=== PATIENT | male | born 1935 | race Hispanic/Latino ===

== ENCOUNTER 2017-08-09 13:49 | Outpatient (CLI) | payer MEDICARE, OTHER ==
--- NOTE | 2017-08-09 14:49 | XRay Report ---
Bilateral standing hips: Hip pain bilaterally. AP and lateral views of the hips are obtained. The articular margins are smooth and the joint spaces are preserved bilaterally. Both hips are in normal alignment. Demineralization is difficult to assess and may be slightly decreased. The lower lumbar bodies appear tilted to the left possibly from scoliosis and there is strong suggestion of rather significant degenerative L5-S1 changes. The SI joints appear intact. Impressions: 1. Unremarkable hips. 2. 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
== END 2017-08-09 13:50 | disposition home or self-care (01) ==
LOC: SPVIMAG 13:49
PROVIDERS: ATTEND Internal Medicine
DX: M25.552 Pain in left hip (principal); M25.551 Pain in right hip
CPT/HCPCS: 73521

== ENCOUNTER 2017-12-29 14:21 | Outpatient (CLI) | payer MEDICARE, OTHER ==
--- NOTE | 2017-12-30 00:02 | XRay Report ---
FINAL REPORT PROCEDURE: XR RIBS UNILAT 2V LT TECHNIQUE: Chest radiograph anteroposterior view. CPT 98587 HISTORY: LEFT RIB PAIN COMPARISON: No prior studies are available for comparison. FINDINGS: Heart: Normal. Mediastinum/Vessels: Normal. Lungs/Pleural space: Normal. Bony thorax: No acute osseous abnormality. Life support devices: None. IMPRESSION: No acute cardiopulmonary abnormality.
== END 2017-12-29 14:22 | disposition home or self-care (01) ==
LOC: SPVIMAG 14:21
PROVIDERS: ATTEND Internal Medicine
DX: R07.81 Pleurodynia (principal)